=== PATIENT | male | born 1965 | race Caucasian/White ===

== ENCOUNTER 2018-05-27 03:41 | Emergency (ER) | payer MEDICARE, OTHER ==
[2018-05-27 03:49] VITALS: TEMP 98.4
--- NOTE | 2018-05-27 04:24 | ED ---
Neck Injury/Pain HPI - General Chief Complaint: Neck Pain/Injury Stated Complaint: neck pain Time Seen by Provider: 05/27/18 03:57 Mode of arrival: EMS Limitations: no limitations - History of Present Illness Initial Comments: This patient is a 52-year-old man who presents to be evaluated for head and left neck pain following a fall. Patient states that he had fallen 2 days ago now. It struck the left side of his head on night stand. Patient states that he tried to manage at home taking Zanaflex, when he continues to have pains to the head and neck anytime he tries to move. MD Complaint: neck pain, neck injury, other (head injury) -: days(s) Place: home Radiation: left lateral, head Severity: severe Quality: aching Consistency: constant Improves With: none Worsens With: movement of neck Context: fall Associated Symptoms: headache Treatments Prior to Arrival: other (Zanaflex) - Related Data Allergies Allergy/AdvReac Type Severity Reaction Status Date / Time No Known Allergies Allergy Verified 05/27/18 03:49 Review of Systems ROS Statement: Those systems with pertinent positive or pertinent negative responses have been documented in the HPI. ROS Other: All systems not noted in ROS Statement are negative. Constitutional: Denies: fever, chills Eyes: Denies: eye pain, vision change ENT: Denies: ear pain, epistaxis Respiratory: Denies: cough, dyspnea Cardiovascular: Denies: chest pain, palpitations Gastrointestinal: Denies: abdominal pain, nausea, vomiting Musculoskeletal: Denies: back pain Skin: Denies: rash Neurological: Reports: headache. Denies: weakness, numbness, paresthesias Past Medical History Additional Past Medical History / Comment(s): sciatica, right knee pain, back pain History of Any Multi-Drug Resistant Organisms: None Reported Past Surgical History: No Surgical Hx Reported Past Psychological History: No Psychological Hx Reported Smoking Status: Never smoker Past Alcohol Use History: Heavy Past Drug Use History: None Reported General Exam Limitations: no limitations General appearance: alert, in no apparent distress Head exam: Present: normocephalic, other (Patient does have a small laceration to the left occipitoparietal area no active bleeding. No palpable deformity. There is mild tenderness.) Eye exam: Present: normal appearance, PERRL, EOMI. Absent: scleral icterus, conjunctival injection Neck exam: Present: normal inspection, tenderness (To the left side of the posterior aspect of the neck, upper cervical area) Respiratory exam: Present: normal lung sounds bilaterally. Absent: respiratory distress, wheezes, rales, rhonchi, stridor Cardiovascular Exam: Present: regular rate, normal rhythm, normal heart sounds. Absent: systolic murmur, diastolic murmur, rubs, gallop GI/Abdominal exam: Present: soft. Absent: tenderness Back exam: Present: normal inspection. Absent: CVA tenderness (R), CVA tenderness (L), paraspinal tenderness, vertebral tenderness Neurological exam: Present: alert, oriented X3, CN II-XII intact. Absent: motor sensory deficit Skin exam: Present: warm, dry, intact, normal color. Absent: rash Course Vital Signs 05/27/18 05/27/18 03:45 05:21 Temperature 98.4 F Pulse Rate 49 L 54 L Respiratory 18 20 Rate Blood Pressure 124/89 134/95 O2 Sat by Pulse 98 100 Oximetry Medical Decision Making - Medical Decision Making Patient's 52-year-old man who sustained a fall 2 days ago and has been having upper left neck pain since that time. He is found to have C2 fracture. I discussed transfer options with the patient and he selects [facility] to see the neurosurgeon's there. I discussed case with Dr. Malone who will agree to accept patient as transfer. Disposition Clinical Impression: Fx C2 vertebra-closed Disposition: OTHER INSTITUTION NOT DEFINED Condition: Serious Is patient prescribed a controlled substance at d/c from ED?: No Referrals: Nonstaff,Physician [Primary Care Provider] - 1-2 days - Out of Hospital Transfer - Req. Specs Out of Hospital Transfer - Requested Specifics: Other Emergency Center
[2018-05-27] MEDS ORDERED: HYDROmorphone 1 MG/ML 1 ML SYRINGE IVP STA (04:49)
--- NOTE | 2018-05-27 04:50 | CT ---
EXAMINATION TYPE: CT brain isis etienne DATE OF EXAM: 05/27/2018 COMPARISON: None HISTORY: Patient presents with neck pain after fall x2 days ago. CT DLP: 1480.6 mGycm Automated exposure control for dose reduction was used. TECHNIQUE: CT scan of the head and cervical spine are performed without contrast. FINDINGS: There is mild cerebral cortical atrophy. There is no mass effect nor midline shift. There is no sign of intracranial hemorrhage. The calvarium is intact. The cervical vertebra have normal alignment. There is a oblique fracture through the body of C2 verte bra. This fractures on the left side and there is fracture line extending through the lateral mass of C2 on the left side and through the right pedicle of C2. Fracture line involves the left-sided alla en transversarium. Fragments are up to 5 mm. The skull base appears intact. There is some s purring and disc space narrowing at C5-6 C6-7. The facet joints are intact. IMPRESSION: Mild cerebral atrophy. No acute intracranial abnormality. There is mildly displaced fracture of the C2 vertebra that includes the right-sided lamina and the le ft side body extending into the left lateral mass. Spondylotic changes in the lower cervical spine. This exam was discussed with the ER physician at 4:50 AM.
[2018-05-27 05:22] VITALS: RESP 20
[2018-05-27 06:05] VITALS: BP 129/81; PULSE 60
== END 2018-05-27 06:12 | disposition other institution (70) ==
LOC: EC 03:41
DX: S12.100A Unspecified displaced fracture of second cervical vertebra, initial encounter for closed fracture (principal); S01.01XA Laceration without foreign body of scalp, initial encounter; W19.XXXA Unspecified fall, initial encounter; Y92.009 Unspecified place in unspecified non-institutional (private) residence as the place of occurrence of the external cause; W22.8XXA Striking against or struck by other objects, initial encounter
CPT/HCPCS: 72125; 70450; 96374; 99284; J1170